=== PATIENT | female | born 1950 | race Caucasian/White ===

== ENCOUNTER 2024-03-17 09:37 | Outpatient (CLI) | payer MEDICARE, OTHER, SELFPAY ==
--- NOTE | 2024-03-17 09:49 | XR_ITS ---
FINAL REPORT CLINICAL HISTORY: Foot Pain COMPARISON: None FINDINGS: RIGHT FOOT: Three views show no evidence of acute displaced fracture or dislocation of the visualized bony architecture. There is mild degenerative change present in the midfoot. Minimal calcaneal spurs are present. IMPRESSION: Mild degenerative change in the midfoot, and minimal calcaneal spurs. Reviewed, Interpreted and Dictated by Alex Patrick MD Transcribed by Adelia Garcia Authenticated and [facility]
[2024-03-17 10:42] LABS: Basophils # 0.1 K/mm3 (0-0.2); Basophils % 0.9 % (0.1-2.0); Eosinophils # 0.3 K/mm3 (0.0-0.4); Eosinophils % 4.4 % (0.1-12.0); Hematocrit 42.3 % (37.0-47.0); Hemoglobin 13.7 g/dL (12.2-16.2); Lymphocytes # 2.3 K/mm3 (0.7-4.5); Lymphocytes % 29.7 % (10-50); Mean Corpuscular HGB Conc 32.4 g/dL (31.8-35.4); Mean Corpuscular Hemoglobin 28.5 pg (27.0-31.2); Mean Corpuscular Volume 88.1 fl (81-99); Monocytes # 0.4 K/mm3 (0.1-1.0); Monocytes % 5.6 % (1.7-9.3); Neutrophils # 4.5 K/mm3 (1.8-7.8); Neutrophils % 59.3 % (37.0-80.0); Platelet Count 289 K/mm3 (142-424); White Blood Count 7.6 K/mm3 (4.8-10.8)
[2024-03-17 10:56] LABS: Albumin Level 4.6 g/dl (3.5-5.0); Chloride 106 mmol/L (98-107); Potassium 4.7 mmoL/L (3.5-5.1); Sodium 139 mmol/L (136-145)
[2024-03-17 10:59] LABS: Alanine Aminotransferase 37 U/L (12-78); Albumin/Globulin Ratio 1.6 (1.1-1.8); Anion Gap 6.7 mEq/L (5-15); Aspartate Amino Transferase 29 U/L (14-36); Blood Urea Nitrogen 21 mg/dl (7-17); Carbon Dioxide 31 mmol/L (22.0-30.0); Estimated Glomerular Filt Rate 61 ml/min (>60); GFR (African American) 74 ML/MIN (>60); Globulin 2.8 g/dL (1.3-3.2); Total Protein,Serum 7.4 g/dl (6.3-8.2)
[2024-03-17 11:00] LABS: Alkaline Phosphatase 106 U/L (38-126); Bilirubin,Total 0.7 mg/dl (0.2-1.3); Calcium 10.3 mg/dl (8.4-10.2); Glucose 144 mg/dl (74-100)
[2024-03-17 12:36] LABS: Erythrocyte Sedimentation Rate 14 mm/hr (0-30)
[2024-03-17 12:45] LABS: Hemoglobin A1C 7.4 % (4.0-6.0)
== END 2024-03-17 23:59 | disposition home or self-care (01) ==
LOC: LAB 09:39
PROVIDERS: PCP Family Medicine; Visit Provider Nurse Practitioner
DX: R60.9 Edema, unspecified (principal); E11.9 Type 2 diabetes mellitus without complications; M79.672 Pain in left foot
CPT/HCPCS: 36415; 73630; 80053; 83036; 85025; 85651; 86140

== ENCOUNTER 2024-04-08 10:05 | Outpatient (CLI) | payer MEDICARE, OTHER, SELFPAY ==
--- NOTE | 2024-04-08 10:07 | CT_ITS ---
PROCEDURE INFORMATION: Exam: CT Right Lower Extremity, Foot Exam date and time: 04/08/2024 10:07 AM Age: 73 years old Clinical indication: Pain; Foot; Right; Additional info: Foot pain TECHNIQUE: Imaging protocol: CT of the right lower extremity without contrast was performed. Exam focused on the foot. Radiation optimization: All CT scans at this facility use at least one of these dose optimization techniques: automated exposure control; mA and/or kV adjustment per patient size (includes targeted exams where dose is matched to clinical indication); or iterative reconstruction. COMPARISON: CR XR FOOT WT BEARING RT 3V 03/17/2024 10:17 AM FINDINGS: Bones/joints: Normal bone mineral density. No appreciable fracture or gross malalignment. Apparent mild metatarsus primus adductus, without distinct hallux valgus. No worrisome lytic or blastic osseous lesion. No cortical erosion or periosteal reaction. [id number] scattered osteoarthritic changes predominantly in the forefoot and midfoot. Soft tissues: Limited by modality, major tendons and ligaments are unremarkable. Small calcaneal and Achilles enthesophytes, without distinct inflammatory change to suggest plantar fasciitis. Tarsal sinus fat appears preserved. Muscle bulk appears overall preserved in the ankle and foot. No soft tissue foreign body, drainable abscess or gas. IMPRESSION: 1. No acute abnormality. 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 2. No distinct acute soft tissue abnormality. Small calcaneal and Achilles enthesophytes without distinct evidence of plantar fasciitis.
== END 2024-04-08 23:59 | disposition home or self-care (01) ==
LOC: RAD 10:07
PROVIDERS: PCP Family Medicine; Visit Provider Nurse Practitioner
DX: R22.41 Localized swelling, mass and lump, right lower limb (principal); M79.671 Pain in right foot
CPT/HCPCS: 73700

== ENCOUNTER 2024-06-08 12:47 | Emergency (ER) | payer MEDICARE, OTHER, SELFPAY ==
--- NOTE | 2024-06-08 12:51 | XR_ITS ---
FINAL REPORT CLINICAL HISTORY: hit it in door FINDINGS: Right wrist Three views were obtained. There is no fracture or dislocation. The joint spaces appear normal. No soft tissue abnormality is identified. IMPRESSION: No acute process. Reviewed, Interpreted and Dictated by Alex Patrick MD Transcribed by Bettie Tello Authenticated and [facility]
--- NOTE | 2024-06-08 12:51 | XR_ITS ---
FINAL REPORT CLINICAL HISTORY: hit in door FINDINGS: Right hand Three views were obtained. There is no fracture or dislocation. The joint spaces appear normal. No soft tissue abnormality is identified. IMPRESSION: No acute process. Reviewed, Interpreted and Dictated by Alex Patrick MD Transcribed by Bettie Tello Authenticated and [facility]
--- NOTE | 2024-06-08 13:32 | EXP.UTC ---
Discharge Plan Disposition Patient Disposition: Home, Self-Care Condition: Good Prescriptions Prescriptions: No Action levothyroxine [Synthroid] 88 mcg tablet 88 mcg PO DAILY potassium chloride 8 mEq capsule, extended release 8 meq PO BID olmesartan 40 mg tablet 40 mg PO DAILY paroxetine HCl [Paxil CR] 37.5 mg tablet extended release 24 hr 37 mg PO QAM glipizide 5 mg tablet extended release 24hr 5 mg PO DAILY aspirin [Adult Aspirin Regimen] 81 mg tablet,delayed release (DR/EC) 81 mg PO DAILY Referrals Follow up/Referrals: Van Perez DO [Staff Physician] - See instructions Ingrid Ramon MD [Primary Care Provider] - See instructions Activity Restrictions/Add. Instructions Additional Instructions/Restrictions: Rest the extremity, apply ice for 15 minutes as tolerated three or four times per day, Wear the matthew wrap for compression, Elevate the extremity as tolerated while you are resting. Take tylenol for pain. Follow up with Dr. Perez (orthopedics). I put in a referral but you need to call his office and schedule an appointment. Follow up with your regular doctor. GO TO THE ER FOR ANY WORSENING SYMPTOMS Clinical Impressions Clinical Impression: Hematoma of right hand, Contusion of hand, right Instructions Patient Instructions: Contusion, DI for Contusion Print Language Print Language: Congolese Discharge ED Provider: Jake Peñaloza [facility] General Stated complaint: AO-06/08 1200- pain in R wrist/hand Time Seen by Provider: 06/08/24 13:30 Related Data Home Medications ?Medication ?Instructions ?Recorded ?Confirmed aspirin 81 mg tablet,delayed 81 mg PO DAILY 03/17/24 06/08/24 release (Adult Aspirin Regimen) glipizide 5 mg tablet, extended 5 mg PO DAILY 03/17/24 06/08/24 release 24 hr levothyroxine 88 mcg tablet 88 mcg PO DAILY 03/17/24 06/08/24 (Synthroid) olmesartan 40 mg tablet 40 mg PO DAILY 03/17/24 06/08/24 paroxetine HCl 37.5 mg 37 mg PO QAM 03/17/24 06/08/24 tablet,extended release 24 hr (Paxil CR) potassium chloride 8 mEq 8 meq PO BID 03/17/24 06/08/24 capsule,extended release Allergies Allergy/AdvReac Type Severity Reaction Status Date / Time clindamycin (CLINDAMYCIN) Allergy Unknown Verified 04/12/24 15:31 codeine (CODEINE) Allergy Unknown Verified 04/12/24 15:31 Sulfa (Sulfonamide Allergy Unknown Verified 04/12/24 15:31 Antibiotics) (SULFA (SULFONAMIDE ANTIBIOTICS)) shellfish derived AdvReac Severe Redness of Verified 04/12/24 15:31 Skin PFSH PFS Disclaimer: The information contained in this section may have been updated after the patient was seen, as this information can be updated by other users. Medical History Hypertension Hypothyroid Diabetes Surgical History History of knee replacement H/O: hysterectomy History of kidney surgery H/O lumpectomy H/O eye surgery Family History Mother Cancer Social History Smoking Status: Never smoker alcohol intake: never current occupational status: retired Travel in the last 8 weeks: None Have you lived/traveled outside US in past 30 days?: No Contact w/someone who lives/traveled outside US past 30 days?: No Exposure to someone with infectious disease in past 14 days?: No Do you have a fever (greater than 100.4 F or 38 C)?: No Have you tested positive for COVID-19: No Exposed to someone with COVID-19 in past 14 days?: No Do you have a sore throat?: No Do you have a cough?: No Do you have any weakness?: No Do you have any diarrhea?: No Are you experiencing any unusual bleeding?: No Do you have any muscle aches/pain?: No Do you have any abdominal pain?: No Are you experiencing loss of taste or smell?: No ROS Obtained: Yes All systems reviewed & no additional complaints except as documented Constitutional Constitutional: Denies chills and Denies fever(s) Eyes Eyes: Denies eye discharge ENT Ears, Nose, Mouth, and Throat: Denies dizziness, Denies otalgia and Denies sore throat Cardiovascular Cardiovascular: Denies chest pain Respiratory Respiratory: Denies shortness of breath, Denies chest congestion, Denies cough, Denies stridor and Denies wheezing Gastrointestinal Gastrointestingal: Denies nausea or vomiting Musculoskeletal Musculoskeletal: Reports system reviewed and no additional complaints, except as documented and Denies arthralgias Integumentary/Breasts Skin/Breast: Denies rash Neurologic Neurologic: Denies dizziness and Denies paresthesias Allergic/Immunologic Allergic/Immunologic: Denies wheezing Physical Exam General General appearance: alert and in no apparent distress Head Head exam: atraumatic, normocephalic and normal inspection Eye Eye exam: Present normal appearance, PERRL and EOMI ENT ENT exam: Present normal exam, normal oropharynx, mucous membranes moist, TM's normal bilaterally and normal external ear exam Neck Neck exam: Present normal inspection, full ROM and trachea midline; Absent meningismus or lymphadenopathy Chest Chest inspection: Present normal inspection and symmetric chest wall rise; Absent tenderness Respiratory Respiratory exam: Present normal lung sounds bilaterally; Absent respiratory distress Cardiovascular Cardiovascular exam: Present regular rate and normal rhythm; Absent JVD Abdominal Exam Abdominal exam: Present soft and normal bowel sounds; Absent distention, tenderness or guarding Extremities Exam Extremities exam: Present normal inspection, full ROM and normal capillary refill; Absent calf tenderness Back Exam Back exam: Present normal inspection; Absent tenderness Neurological Exam Neurological exam: Present alert and oriented X3 Psychiatric Psychiatric exam: Present normal affect and normal mood Skin Skin exam: Present warm, dry, intact and normal color Lymphatic Lymphatic Findings: no adenopathy Medical Decision Making Medical Records Medical records reviewed: No I reviewed the patient's medical records. Screening: Per USPSTF and CDC recommendations, given the prevalence of disease in our region, it is our hospital?s policy to screen for HIV and viral Hepatitis for all patients aged 18 and over and those with ongoing risk factors. Babatunde Inquiry Pt receiving controlled substance: No Orders (Tests/Meds): ORDERS Category Date Time Status XR hand RT min 3V Stat Exams 06/08/24 12:51 Taken XR wrist RT min 3V Stat Exams 06/08/24 12:51 Taken
[2024-06-08 13:34] VITALS: BP 143/62; PULSE 85; RESP 18; TEMP 36.8; O2SAT 96; BMI 32.1
[2024-06-08 14:31] VITALS: BP 143/62; PULSE 85; RESP 18; TEMP 36.8
== END 2024-06-08 14:32 | disposition home or self-care (01) ==
PROVIDERS: Emergency Provider Nurse Practitioner Family; PCP Family Medicine
DX: S60.221A Contusion of right hand, initial encounter (principal); X58.XXXA Exposure to other specified factors, initial encounter
CPT/HCPCS: 73110; 73130; 99213; G0381

== ENCOUNTER 2024-06-14 14:24 | Emergency (ER) | payer MEDICARE, OTHER, SELFPAY ==
--- NOTE | 2024-06-14 14:35 | ED_ITS ---
<Statement entered by Yessica Ceja DO - 06/14/24 18:57> I was consulted by the ALEXIS, and we discussed the complexity of the problems being addressed. I approved the treatment and management plan for this patient's care in the emergency department, thus performing a substantive portion of the medical decision making. Yessica Ceja DO Discharge Plan Disposition Patient Disposition: Home, Self-Care Condition: Good Prescriptions Prescriptions: New ondansetron 4 mg tablet,disintegrating 4 mg PO QID PRN (Reason: nausea and vomiting) Qty: 10 0RF nitrofurantoin monohyd/m-cryst 100 mg capsule 100 mg PO BID 5 Days Qty: 10 0RF Rx Instructions: must administer with a meal/food No Action levothyroxine [Synthroid] 88 mcg tablet 88 mcg PO DAILY potassium chloride 8 mEq capsule, extended release 8 meq PO BID olmesartan 40 mg tablet 40 mg PO DAILY paroxetine HCl [Paxil CR] 37.5 mg tablet extended release 24 hr 37 mg PO QAM glipizide 5 mg tablet extended release 24hr 5 mg PO DAILY aspirin [Adult Aspirin Regimen] 81 mg tablet,delayed release (DR/EC) 81 mg PO DAILY Referrals Follow up/Referrals: Provider,Referral, MD [Referring] - See instructions Activity Restrictions/Add. Instructions Additional Instructions/Restrictions: I have sent both an antibiotic and an antinausea medication into [facility] and is the only pharmacy open today and none are open tomorrow. Please take antibiotic till they are gone. Follow-up with your PCP next week for recheck. Return to ER for any worsening signs or symptoms as needed. Clinical Impressions Clinical Impression: Nausea vomiting and diarrhea Urinary tract infection Qualifiers: Urinary tract infection type: site unspecified Hematuria presence: with hematuria Qualified Code(s): N39.0 - Urinary tract infection, site not specified Instructions Patient Instructions: DI for Diarrhea and Traveler's Diarrhea -- Adult, DI for Diarrhea and Traveler's Diarrhea -- Child, DI for Nausea -- Adult, DI for Nausea -- Child Print Language Print Language: Moldovan Discharge ED Provider: Yessica Ceja General Adult HPI General Chief complaint: Nausea/Vomiting/Diarrhea Stated complaint: weak, unable to keep anything down, hot Time Seen by Provider: 06/14/24 14:35 History of Present Illness HPI narrative: Patient presents for 3 days of nausea vomiting and diarrhea. Patient reports that she has had increasing nausea vomiting diarrhea over the last 3 days. Today she has been intolerant of any oral intake including all of her home medications. She is a type II diabetic with oral medications and has not been able take her medications today. She reports diffuse abdominal pain but no chest pain shortness of breath chills hemoptysis hematochezia melena hematemesis hematuria Related Data Home Medications ?Medication ?Instructions ?Recorded ?Confirmed aspirin 81 mg tablet,delayed 81 mg PO DAILY 03/17/24 06/08/24 release (Adult Aspirin Regimen) glipizide 5 mg tablet, extended 5 mg PO DAILY 03/17/24 06/08/24 release 24 hr levothyroxine 88 mcg tablet 88 mcg PO DAILY 03/17/24 06/08/24 (Synthroid) olmesartan 40 mg tablet 40 mg PO DAILY 03/17/24 06/08/24 paroxetine HCl 37.5 mg 37 mg PO QAM 03/17/24 06/08/24 tablet,extended release 24 hr (Paxil CR) potassium chloride 8 mEq 8 meq PO BID 03/17/24 06/08/24 capsule,extended release Previous Rx's ?Medication ?Instructions ?Recorded nitrofurantoin 100 mg PO BID 5 days #10 caps 06/14/24 monohydrate/macrocrystals 100 mg capsule ondansetron 4 mg disintegrating 4 mg PO QID PRN nausea and 06/14/24 tablet vomiting #10 tabs Allergies Allergy/AdvReac Type Severity Reaction Status Date / Time clindamycin (CLINDAMYCIN) Allergy Unknown Verified 04/12/24 15:31 codeine (CODEINE) Allergy Unknown Verified 04/12/24 15:31 Sulfa (Sulfonamide Allergy Unknown Verified 04/12/24 15:31 Antibiotics) (SULFA (SULFONAMIDE ANTIBIOTICS)) shellfish derived AdvReac Severe Redness of Verified 04/12/24 15:31 Skin PFSH PFSH Disclaimer: The information contained in this section may have been updated after the patient was seen, as this information can be updated by other users. Medical History Hypertension Hypothyroid Diabetes Surgical History History of knee replacement H/O: hysterectomy History of kidney surgery H/O lumpectomy H/O eye surgery Family History Mother Cancer Social History Smoking Status: Never smoker alcohol intake: never current occupational status: retired Travel in the last 8 weeks: None Have you lived/traveled outside US in past 30 days?: No Contact w/someone who lives/traveled outside US past 30 days?: No Exposure to someone with infectious disease in past 14 days?: No Do you have a fever (greater than 100.4 F or 38 C)?: No Have you tested positive for COVID-19: No Exposed to someone with COVID-19 in past 14 days?: No Do you have a sore throat?: No Do you have a cough?: No Do you have any weakness?: No Do you have any diarrhea?: No Are you experiencing any unusual bleeding?: No Do you have any muscle aches/pain?: No Do you have any abdominal pain?: No Are you experiencing loss of taste or smell?: No Other Medical History Have you received the Pneumonia Vaccine: No ROS Obtained: Yes Systems reviewed as appropriate & no additional complaints except as documented Physical Exam General General appearance: alert and in no apparent distress Respiratory Respiratory exam: Present normal lung sounds bilaterally and accessory muscle use Cardiovascular Cardiovascular exam: Present regular rate Neurological Exam Neurological exam: Present alert and oriented X3 Medical Decision Making Medical Records Medical records reviewed: Yes I reviewed the patient's medical records. Screening: Per USPSTF and CDC recommendations, given the prevalence of disease in our region, it is our hospital?s policy to screen for HIV and viral Hepatitis for all patients aged 18 and over and those with ongoing risk factors. Babatunde Inquiry Pt receiving controlled substance: No Vital Signs: 06/14/24 14:46 06/14/24 15:28 06/14/24 16:01 Temperature 98.2 F Temperature Source Oral Pulse Rate 90 87 Pulse Rate [Left] 88 Respiratory Rate 20 Blood Pressure 120/63 105/52 L Blood Pressure [Right Arm] 134/74 Blood Pressure Mean 80 Blood Pressure Mean [Right Arm] 94 Blood Pressure Source [Right Arm] Automatic Cuff Blood Pressure Position [Right Arm] Sitting 02 Sat by Pulse Oximetry 95 95 98 Oxygen Delivery Method Room Air Room Air Room Air 06/14/24 16:30 Temperature Temperature Source Pulse Rate 82 Pulse Rate [Left] Respiratory Rate Blood Pressure 123/62 Blood Pressure [Right Arm] Blood Pressure Mean 70 Blood Pressure Mean [Right Arm] Blood Pressure Source [Right Arm] Blood Pressure Position [Right Arm] 02 Sat by Pulse Oximetry 96 Oxygen Delivery Method Room Air Lab Data Lab results reviewed: Yes I reviewed the patient's lab results. Lab Results 06/14/24 15:00: WBC 5.1, RBC 5.02, Hgb 13.6, Hct 41.2, MCV 82.1, MCH 27.1, MCHC 33.0, RDW 13.1, Plt Count 201, MPV 8.7, Neut % (Auto) 52.6, Lymph % (Auto) 31.7, [place] % (Auto) 10.9 H, Eos % (Auto) 4.2, Baso % (Auto) 0.4, Neut # (Auto) 2.7, Lymph # (Auto) 1.6, [place] # (Auto) 0.6, Eos # (Auto) 0.2, Baso # (Auto) 0.0, S odium 133 L, Potassium 4.3, Chloride 100, Carbon Dioxide 26, Anion Gap 11.3, BUN 36 H, Creatinine 1.00, Estimated Creat Clear 65, Estimated GFR 54 L, Est GFR ( Amer) 66, Glucose 384 H, Calcium 9.6, Phosphorus 3.1, Magnesium 1.9, Total Bilirubin 0.5, AST 39 H, ALT 41, Alkaline Phosphatase 84, Total Protein 6.9, Albumin 4.0, Globulin 2.9, Albumin/Globulin Ratio 1.4, Lipase 66, Procalcitonin 0.157 06/14/24 16:20: Urine Color Yellow, Urine Appearance Clear, Urine pH 6.0, Ur Specific [place] 1.020, Urine Protein Negative, Urine Glucose (UA) 3+, Urine Ketones Negative, Urine Blood Negative, Urine Nitrate Positive A, Urine Bilirubin Negative, Urine Urobilinogen 0.2, Ur Leukocyte Esterase Negative, Urine RBC Occasional, Urine WBC 5-10, Ur Squamous Epith Cells 3-5, Urine Bacteria Trace 06/14/24 16:28: Lactate 1.3 06/14/24 15:00 06/14/24 15:00 Orders (Tests/Meds): ED MEDICATIONS Discontinued Medications Generic Name Dose Route Start Last Admin Trade Name Ash PRN Reason Stop Dose Admin Sodium Chloride 1,000 mls @ 999 mls/hr 06/14/24 14:45 06/14/24 15:04 Sod Chlor 0.9% 1000ml Bag IV 06/14/24 15:45 999 mls/hr .Q1H1M ONE Administration Nitrofurantoin Macrocrystals 100 mg 06/14/24 16:55 06/14/24 17:00 Nitrofurantoin 100mg Capsule PO 06/14/24 16:56 100 mg ONCE ONE Administration Promethazine HCl 12.5 mg 06/14/24 14:45 06/14/24 15:04 Promethazine Hcl 25mg/Ml 1ml Vial IV 06/14/24 14:46 12.5 mg ONCE ONE Administration Sodium Chloride 25 ml 06/14/24 14:45 06/14/24 15:04 Sodium Chloride 0.9% 25ml Bag IV 06/14/24 14:46 25 ml ONCE ONE Administration ORDERS Category Date Time Status CBC w/Auto Diff [Complete Blood Count Auto Diff] Stat Lab 06/14/24 15:00 Completed CMP [Comprehensive Metabolic Panel] Stat Lab 06/14/24 15:00 Completed HIV Combo Stat Lab 06/14/24 15:00 Received Hep C Ab with Reflex to RNA Stat Lab 06/14/24 15:00 Received Lactic Acid Stat Lab 06/14/24 16:28 Completed Lipase Stat Lab 06/14/24 15:00 Completed Magnesium Stat Lab 06/14/24 15:00 Completed Phosphorous Stat Lab 06/14/24 15:00 Completed Procalcitonin Stat Lab 06/14/24 15:00 Completed UA [Urinalysis and Microscopic] Stat Lab 06/14/24 16:20 Completed Urine Culture Stat Micro 06/14/24 16:20 Received Medical Decision Narrative: In summary patient is a 73-year-old female who presents to the emergency department for evaluation of nausea vomit diarrhea. Patient is hemodynamically stable upon arrival, afebrile. Physical exam is remarkable for normal breath sounds no chest pain no adventitious sounds no increased work of breathing diffuse mild abdominal tenderness without rebound or guarding or rigidity and hyperactive bowel sounds. Differential diagnosis includes viral or bacterial gastroenteritis versus other viral bacterial infection. Initial workup will be conducted with hematologic labs urinalysis. Initial interventions include crystalloid bolus Phenergan as patient is already had Zofran. Initial workup reviewed by me shows her hematologic labs are nonactionable with exception of a glucose of 294 however patient has no anion gap and her CO2 is 26 urinalysis is nitrate positive and microscopic exam shows occasional red cells 5-10 white cells trace bacteria. Upon repeat evaluation patient is actually significantly better and is now tolerating oral intake. Given this patient is appropriate for discharge with prescription for Macrobid with first dose given here and Zofran sent to pharmacy and strict return precautions. Patient is Comfortable with going home with strict return precautions. Critical Care Critical Care Time Critical Care Time: No
--- NOTE | 2024-06-14 14:42 | PC.NURSE ---
FSBS is 396 at this time.
[2024-06-14 14:46] VITALS: BP 134/74; PULSE 88; RESP 20; TEMP 36.8; O2SAT 95; BMI 31.0
[2024-06-14] MEDS: 0.9 % SODIUM CHLORIDE 1000ML 1,000 ML 999 ML IV (15:04)
[2024-06-14] MEDS: SODIUM CHLORIDE 0.9% 25ML BAG 25 ML IV (15:04)
[2024-06-14] MEDS: PROMETHAZINE HCL 25MG/ML 1ML VIAL 12.5 MG IV (15:04)
[2024-06-14 15:14] LABS: Hematocrit 41.2 % (37.0-47.0); Hemoglobin 13.6 g/dL (12.2-16.2); Red Blood Count 5.02 M/mm3 (4.20-5.40); White Blood Count 5.1 K/mm3 (4.8-10.8)
[2024-06-14 15:15] LABS: Basophils % 0.4 % (0.1-2.0); Eosinophils # 0.2 K/mm3 (0.0-0.4); Eosinophils % 4.2 % (0.1-12.0); Lymphocytes # 1.6 K/mm3 (0.7-4.5); Lymphocytes % 31.7 % (10-50); Mean Corpuscular Hemoglobin 27.1 pg (27.0-31.2); Mean Corpuscular Volume 82.1 fl (81-99); Mean Platelet Volume 8.7 fl (7.4-10.4); Monocytes # 0.6 K/mm3 (0.1-1.0); Monocytes % 10.9 % (1.7-9.3); Neutrophils # 2.7 K/mm3 (1.8-7.8); Neutrophils % 52.6 % (37.0-80.0); Platelet Count 201 K/mm3 (142-424); Red Cell Distribution Width 13.1 % (11.5-17.5)
[2024-06-14 15:20] LABS: Chloride 100 mmol/L (98-107)
[2024-06-14 15:21] LABS: Potassium 4.3 mmoL/L (3.5-5.1); Sodium 133 mmol/L (136-145)
[2024-06-14 15:23] LABS: Alanine Aminotransferase 41 U/L (12-78); Alkaline Phosphatase 84 U/L (38-126); Anion Gap 11.3 mEq/L (5-15); Aspartate Amino Transferase 39 U/L (14-36); Bilirubin,Total 0.5 mg/dl (0.2-1.3); Blood Urea Nitrogen 36 mg/dl (7-17); Carbon Dioxide 26 mmol/L (22.0-30.0); Creatinine Clearance Estimated 65 mL/min (50-200); Estimated Glomerular Filt Rate 54 ml/min (>60); GFR (African American) 66 ML/MIN (>60)
[2024-06-14 15:24] LABS: Albumin/Globulin Ratio 1.4 (1.1-1.8); Calcium 9.6 mg/dl (8.4-10.2); Globulin 2.9 g/dL (1.3-3.2); Glucose 384 mg/dl (74-100); Lipase 66 U/L (23-300); Magnesium 1.9 mg/dl (1.6-2.3); Phosphorous 3.1 mg/dl (2.5-4.5); Total Protein,Serum 6.9 g/dl (6.3-8.2)
[2024-06-14 15:28] VITALS: BP 120/63; PULSE 90; O2SAT 95
[2024-06-14 15:40] LABS: Procalcitonin 0.157 ng/mL (0.0-2.0)
[2024-06-14 16:01] VITALS: BP 105/52; PULSE 87; O2SAT 98
[2024-06-14 16:24] LABS: Microscopic, Urine URINE MICROSCOPIC (MICROSCOPIC)
[2024-06-14 16:27] LABS: Appearance,Urine CLEAR (Clear); Bilirubin,Urine Negative (Negative); Blood, Urine Negative (Negative); Color,Urine YELLOW (Yellow); Glucose,Urine (UA) 3+ (Negative); Ketones,Urine Negative (Negative); Leukocyte Esterase,Urine Negative (Negative); Nitrate,Urine POSITIVE (Negative); Protein,Urine Negative (Negative); Urobilinogen,Urine 0.2 EU/dl (0.2)
[2024-06-14 16:30] VITALS: BP 123/62; PULSE 82; O2SAT 96
[2024-06-14 16:40] LABS: Bacteria,Urine Trace /lpf; RBC,Urine Occasional #/hpf (0-3)
[2024-06-14 16:53] LABS: Lactic Acid 1.3 mmol/L (0.7-2.1)
[2024-06-14] MEDS: NITROFURANTOIN 100MG CAPSULE 100 MG PO (17:00)
[2024-06-14 17:07] VITALS: BP 130/51; PULSE 74; RESP 16; TEMP 36.7; O2SAT 96
[2024-06-14 17:41] LABS: HIV Combo NEGATIVE (Negative)
--- NOTE | 2024-06-15 16:29 | PC.NURSE ---
urine prelim discussed with , pt on macrobid, ok until sensitivity comes back.
--- NOTE | 2024-06-16 09:57 | PC.NURSE ---
URINE CULTURE DISCUSSED WITH DR REY, NO MED CHANGES NEEDED
[2024-06-17 07:08] LABS: HCV Ab Non Reactive (Non Reactive)
== END 2024-06-14 17:20 | disposition home or self-care (01) ==
PROVIDERS: Physician Assistant; Emergency Provider Emergency Medicine; PCP Family Medicine
DX: N39.0 Urinary tract infection, site not specified (principal); R11.2 Nausea with vomiting, unspecified; R19.7 Diarrhea, unspecified
CPT/HCPCS: 80053; 81001; 83605; 83690; 83735; 84100; 84145; 85025; 86803; 87086; 87088; 87186; 87389; 96361; 96374; 99283; J2550; J7030